=== PATIENT | male | born 1995 | race African-American/Black ===

== ENCOUNTER 2024-07-10 10:20 | Emergency (ER) | payer OTHER ==
[~2024-07-10] VITALS: Ht 182.9 cm; Wt 145.0 kg
[2024-07-10 10:27] VITALS: O2SAT 99
[2024-07-10] MEDS: ONDANSETRON 4MG ODT PO STA (11:23)
[2024-07-10] MEDS: SODIUM CHLORIDE 0.9% 1,000 ML IV ONE (11:23)
[2024-07-10 12:20] LABS: EOSINOPHILS % 0.9 % (0.0-5.0); HEMOGLOBIN. 12.7 g/dL (14.0-18.0); LYMPHOCYTES % 19.3 % (20.0-50.0); MEAN CORPUSCULAR HEMOGLOBIN 26.1 pg (28.0-32.0); MEAN CORPUSCULAR HGB CONC 31.9 g/dL (31.0-37.0); MEAN PLATELET VOLUME 7.8 fl (7.4-10.4); MONOCYTES % 6.6 % (2.0-8.0); NEUTROPHILS % 72.2 % (40.0-76.0); PLATELET 324 x1000/uL (130-400); RED BLOOD CELL COUNT 4.88 mill/uL (4.7-6.1); RED CELL DISTRIBUTION WIDTH 15.5 % (11.6-14.6)
[2024-07-10 12:28] LABS: CARBON DIOXIDE 28 mEq/L (21-32); CHLORIDE 108 mEq/L (98-107); POTASSIUM 4.2 mEq/L (3.5-5.1); SODIUM 142 mEq/L (136-145)
[2024-07-10 12:29] LABS: CALCIUM 9.1 mg/dL (8.7-10.4)
[2024-07-10 12:34] LABS: CREATININE 1.1 mg/dL (0.6-1.3); GLUCOSE 122 mg/dL (70-105); UREA NITROGEN BLOOD 11 mg/dL (9-23)
[2024-07-10 12:36] LABS: ALANINE AMINOTRANSFERASE 35 IU/L (10-49); ALBUMIN 4.4 g/dL (3.2-4.8); ASPARTATE AMINOTRANSFERASE 21 IU/L (<34); BILIRUBIN TOTAL 0.3 mg/dL (0.1-1.0)
[2024-07-10 12:45] LABS: BILIRUBIN DIRECT < 0.1 mg/dL (<=3.0)
[2024-07-10 13:35] VITALS: BP 149/98; PULSE 89; RESP 18; TEMP 36.9; O2SAT 98
== END 2024-07-10 14:05 | disposition home or self-care (01) ==
LOC: ER 10:20
DX: R55 Syncope and collapse (principal); R11.2 Nausea with vomiting, unspecified; E86.0 Dehydration
CPT/HCPCS: 80076; 80048; 83690; 85025; 36415; 93005; 96360; 96361; 99284; Q0162; J7030; Z7610